=== PATIENT | female | born 1960 | race African-American/Black ===

== ENCOUNTER → 2017-01-08 | Outpatient (CLI) | payer BC ==
--- NOTE | ~2017-01-08 | MY29 ---
[facility] A Service of [facility] RADIOLOGY TEXT RESULTS PATIENT: HU QUEZADA LOCATION: [facility] : 58 UNIT #: [id number] AGE: [address]: Letitia Mcclelland MD SEX: F ORDER DR: [id number] [facility] [address] [place], [place] [address] [id number] O MR#: [id number] Acc #: [id number] NAME: HU QUEZADA : 1960 SEX: F STUDY DATE/TIME: 01/08/2017 15:36 UNIT: [facility] ROOM: STUDY DESCRIPTION: MY ZHEN SCREENING W/ CAD BILAT Attending Physician: Letitia Mcclelland M.D. Referring Physician: Letitia Mcclelland M.D. Ordering Physician: Letitia Mcclelland M.D. Primary Care Physician: Letitia Mcclelland M.D. MEDICAL IMAGING REPORT This report is preliminary unless electronic signature is present EXAM Digital screening mammogram, 01/08/2017, [facility]. HISTORY 56-year-old woman. No risk elevation. Annual screen. COMPARISON Mammograms date to 07/10/2007 with most recent 11/16/2015 FINDINGS Digital imaging of each breast was completed utilizing screening protocol. Surgical skin marker was placed on the right breast. Review includes FDA-approved CAD device. Breast parenchyma is predominantly fatty replaced with fibroglandular dominance again noted anterior third right breast. Intramammary lymph nodes right breast are stable. There is no interval occurring breast mass. I see no suspicious microcalcifications and no architectural deformity. IMPRESSION Negative mammogram. Annual screening recommended. Patients over the age of 40 are entered into a reminder system with target due date for the next mammogram. A result letter will also be sent to the patient. BIRADS: 1 Negative. Dictated by... Felix Joseph M.D. THIS IS AN ELECTRONICALLY VERIFIED REPORT [facility] A Service of [facility] RADIOLOGY TEXT RESULTS PATIENT: HU QUEZADA LOCATION: [facility] : 58 UNIT #: [id number] AGE: [address]: Letitia Mcclelland MD SEX: F ORDER DR: Felix Joseph M.D. at 01/09/2017 11:25 AM TISH/chun TD: 01/09/2017 11:16 JOB #: [id number] MEDICAL IMAGING REPORT Page 1 of 1 COPY
== END | disposition home or self-care (01) ==
LOC: CWCC 15:15
DX: Z12.31 Encounter for screening mammogram for malignant neoplasm of breast (principal)
CPT/HCPCS: G0202

== ENCOUNTER → 2017-01-16 | Outpatient (CLI) | payer BC ==
--- NOTE | ~2017-01-16 | CR126 ---
[facility] A [facility] RADIOLOGY TEXT RESULTS PATIENT: HU QUEZADA LOCATION: [facility] : 58 UNIT #: [id number] AGE: [address]: Letitia Mcclelland MD SEX: F ORDER DR: [id number] [facility] [address] [place], [place] [address] [id number] O MR#: [id number] Acc #: [id number] NAME: HU QUEZADA : 1960 SEX: F STUDY DATE/TIME: 01/16/2017 15:46 UNIT: [facility] ROOM: STUDY DESCRIPTION: CR Foot Complete Min 3 View Lt Attending Physician: Letitia Mcclelland M.D. Referring Physician: Letitia Mcclelland M.D. Ordering Physician: Letitia Mcclelland M.D. Primary Care Physician: Letitia Mcclelland M.D. MEDICAL IMAGING REPORT This report is preliminary unless electronic signature is present EXAM Three views of the left foot. DATE 01/16/2017 HISTORY 56-year-old female with left foot pain, swelling, numbness and tingling, which began 2 days ago. Nail punctured foot 1 month ago. COMPARISON None. FINDINGS No acute displaced fracture. No retained radiopaque foreign body. No subcutaneous gas. 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 IMPRESSION 1. No acute abnormality of the left foot. Mild osteoarthritic change of the first MTP joint. Dictated by... Ellie Rodríguez M.D. THIS IS AN ELECTRONICALLY VERIFIED REPORT Ellie Rodríguez M.D. at 01/17/2017 9:36 PM [facility] TD: 01/16/2017 23:17 JOB #: [id number] [facility] A [facility] of [facility] RADIOLOGY TEXT RESULTS PATIENT: HU QUEZADA LOCATION: [facility] : 58 UNIT #: [id number] AGE: [address]: Letitia Mcclelland MD SEX: F ORDER DR: MEDICAL IMAGING REPORT Page 1 of 1 COPY
== END | disposition home or self-care (01) ==
LOC: CRAD 15:21
DX: S99.922A Unspecified injury of left foot, initial encounter (principal)
CPT/HCPCS: 73630